=== PATIENT | female | born 1970 | race Hispanic/Latino ===

== ENCOUNTER 2024-10-26 12:36 | Emergency (ER) | payer MEDICARE ==
[~2024-10-26] VITALS: Ht 154.9 cm; Wt 113.4 kg
--- NOTE | 2024-10-26 12:47 | ERN ---
ED Note History of Present Illness Stated Complaint: LEFT BREAST INFECTION Chief Complaint: Breast Problem Time Seen by MD: 12:40 Dictation: PATIENT IS A 54-YEAR-OLD FEMALE HERE WITH A BREAST INFECTION AFTER HAVING A BREAST REDUCTION AT [facility] IN LATE SEPTEMBER. SHE SAID NO FEVER NO CHILLS. SHE SAW HER DOCTOR LAST WEEK WHO PERFORMED A CULTURE ON SOME DRAINAGE FROM THE BREAST LEFT AND PUT HER ON CLINDAMYCIN 300 MG Q.I.D.. SHE SPOKE WITH THE SURGEON FROM [facility], DR. CUENCA WHO TOLD HER THAT SHE DID NOT NEED TO RETURNED TO [facility] OR HIM BECAUSE THE SURGERY WAS COMPLETED. Allergies: Coded Allergies: meloxicam (Unverified Allergy, Unknown, 10/26/24) Past Medical History History: Not Applicable RN Note Reviewed/Agreed w/PFSH: Yes Review of System Dictation NORMAL ROS CONSTITUTIONAL: NEGATIVE EXCEPT FOR HPI HEAD/FACE: NEGATIVE EXCEPT FOR HPI EENT: NEGATIVE EXCEPT FOR HPI RESPIRATORY: NEGATIVE EXCEPT FOR HPI LEFT BREAST PAIN WITH DISCHARGED FROM SURGICAL SITE GASTROINTESTINAL/ABDOMINAL: NEGATIVE EXCEPT FOR HPI GENITOURINARY: NEGATIVE EXCEPT FOR HPI MUSCULOSKELETAL: NEGATIVE EXCEPT FOR HPI INTEGUMENTARY: NEGATIVE EXCEPT FOR HPI NEUROLOGICAL/PSYCH: NEGATIVE EXCEPT FOR HPI HEMATOLOGIC/LYMPHATIC: NEGATIVE EXCEPT FOR HPI ALL SYSTEMS NEGATIVE, EXCEPT NOTED ABOVE. 13 POINT REVIEW OF SYSTEMS ASSESSED AND ALL NEGATIVE EXCEPT FOR ABOVE. Initial Vital Sign VS Vital Signs Date Time Temp Pulse Resp B/P (MAP) Pulse Ox O2 Delivery O2 Flow Rate FiO2 10/26/24 12:43 97.9 71 16 152/65 96 0 Physical Exam Dictation VITAL SIGNS REVIEWED ANJELICA NURSE STUDENT WITH THE EXAM GENERAL APPEARANCE: ALERT, ORIENTED X 3, NO ACUTE DISTRESS, WELL DEVELOPED, NOURISHED. HEAD AND FACE: NON-TRAUMATIC. EYES: PERRL, PINK CONJUNCTIVAS, EYELID NO TRAUMA, ANTERIOR CHAMBER WITH ARCUS SENILIS. EARS: PINNAS INTACT AND NO SIGNS OF TRAUMA OR ERYTHEMA EAR CANALS CLEAR AND NO DISCHARGE TM NO ERYTHEMA NOSE: NO DISCHARGE, NO BLEEDING. OROPHARYNX: MOUTH NORMAL, TONGUE PINK, PHARYNX CLEAR,NO ERYTHEMA, TONSILS NO EXUDATES, NO ABSCESSES NOTED, MUCOUS MEMBRANE MOIST NECK: SUPPLE, NON-TENDER, NO THYROMEGALY, NO MASSES, NO JVD, NO BRUITS BREAST PATIENT HAS INCISION LINE THAT HER APPROXIMATED FROM BREAST REDUCTION ON 10/03. NIPPLE REATTACHMENT INCISION TO RIGHT IS DARK. PATIENT HAS PACKING TO THE LEFT NIPPLE INCISION LINE. SHE STATES THIS WAS PLACED BY HER DOCTOR WHEN HE EXAMINED HER TWO DAYS AGO AND STARTED HER ON CLINDAMYCIN. CHEST:NO TENDERNESS, NO CREPITUS, NO PARADOXICAL MOVEMENT, NO RETRACTIONS LUNGS:CLEAR, WELL-VENTILATED, SYMMETRIC, NO RALES, NO WHEEZING, NO RHONCHI, NO STRIDOR, GOOD BREATH SOUNDS BILATERALLY HEART: REGULAR RATE, REGULAR RHYTHM, NO MURMUR, NO GALLOPS VASCULAR: NO PERIPHERAL EDEMA, ABDOMEN: SOFT, POSITIVE BOWEL SOUNDS, NONDISTENDED, NO GUARDING, NONTENDER, NO REBOUND, NO MASSES NO HEPATOMEGALY, NO SPLENOMEGALY, NO GALVAN'S SIGN, NO HERNIAS. RECTAL: DEFERRED GENITAL: DEFERRED NEUROLOGICAL: NORMAL SPEECH, MOTOR FUNCTION INTACT, SENSORY FUNCTION INTACT MUSCULOSKELETAL: NECK NONTENDER, FULL RANGE OF MOTION, BACK NONTENDER, FULL RANGE OF MOTION, EXTREMITIES: NONTENDER, FULL RANGE OF MOTION SKIN: COLOR PINK, DRY, NO TURGOR, NO RASH, NO LACERATIONS, NO ABRASIONS, NO CONTUSIONS. LYMPHATIC: DEFERRED Results (Laboratory/Radiology) Laboratory/Radiology Laboratory Tests Test 10/26/24 13:02 White Blood Count 7.9 K/uL (4.8-10.8) Red Blood Count 4.57 MIL/uL (4.00-5.50) Hemoglobin 13.5 g/dL (12.0-16.0) Hematocrit 41.2 % (36-48) Mean Corpuscular Volume 90.2 fL (79-99) Mean Corpuscular Hemoglobin 29.5 pg (27.0-33.0) Mean Corpuscular Hemoglobin Concent 32.8 g/dL (32.0-36.0) Red Cell Distribution Width 13.2 % (11.0-15.5) Platelet Count 318 K/uL (130-400) Mean Platelet Volume 9.0 fL (7.5-10.5) Immature Granulocyte % (Auto) 0.3 % (0-1) Neutrophils (%) (Auto) 62.3 % (40.0-77.0) Lymphocytes (%) (Auto) 25.0 % (21.0-51.0) Monocytes (%) (Auto) 5.9 % (3.0-13.0) Eosinophils (%) (Auto) 6.1 % (0.0-8.0) Basophils (%) (Auto) 0.4 % (0.0-5.0) Neutrophils # (Auto) 5.0 K/uL (1.8-7.7) Lymphocytes # (Auto) 2.0 K/uL (1.0-4.8) Monocytes # (Auto) 0.5 K/uL (0.1-1.0) Eosinophils # (Auto) 0.48 K/uL (0.00-0.70) Basophils # (Auto) 0.03 K/uL (0.00-0.20) Absolute Immature Granulocyte (auto 0.02 K/uL (0-1) Nucleated Red Blood Cells 0.0 % (0.0-0.19) Sodium Level 141 mmol/L (136-145) Potassium Level 4.1 mmol/L (3.5-5.1) Chloride Level 105 mmol/L (101-111) Carbon Dioxide Level 31 mmol/L (21-32) Blood Urea Nitrogen 18 mg/dL (7-18) Creatinine 0.7 mg/dL (0.5-1.0) Glomerular Filtration Rate Calc 103 mL/min (>90) Random Glucose 96 mg/dL (70-105) Lactic Acid Level 1.5 mmol/L (0.8-2.5) Total Calcium 9.2 mg/dL (8.5-10.1) Labs Reviewed?: Yes ED Course ED Course Orders Procedure Category Date Status Time Blood Cult HAYDER 10/26/24 In Process 12:44 Lactic Acid LAB 10/26/24 Complete 12:44 Cbc With Differential LAB 10/26/24 Complete 12:44 Basic Metabolic Panel LAB 10/26/24 Complete 12:44 0.9%Nacl 1000ml (Ns PHA 10/26/24 Complete 1000ml) 13:30 *Nursing CPOE 10/26/24 Transmitted Communication: 13:50 Current Medications Medications (Trade) Dose Ordered Sig/Mykel Route PRN Reason Start Time Stop Time Status Last Admin Dose Admin Sodium Chloride 1,000 ml @ 0 mls/hr ONCE ONCE IV 10/26/24 13:30 10/26/24 13:31 DC 10/26/24 14:02 Vital Signs Date Time Temp Pulse Resp B/P (MAP) Pulse Ox O2 Delivery O2 Flow Rate FiO2 10/26/24 12:43 97.9 71 16 152/65 96 0 1445/PATIENT HEMODYNAMICALLY STABLE A FEVER UP. DISCHARGED HOME WITH NORMAL LABS TOLD TO CONTINUE CLINDAMYCIN AFTER BREAST INCISION LINES WERE CLEANED WITH NORMAL SALINE BY THE NURSE AND DRY DRESSING WAS REPLACED. SHE WAS TOLD TO CONTINUE CLINDAMYCIN AND TO FOLLOW UP WITH HER SURGEON AT [facility] IN THE NEXT 1-2 DAYS. Medical Decision Making MDM MEDICAL DECISION-MAKING BASED ON BASIC LABS TO RULE OUT INFECTION SECONDARY TO SURGERY. LABS ARE COMPLETELY UNREMARKABLE DRESSING NOTED WITH PACKING TO LEFT BREAST PACKING WAS LEFT IN PLACE INCISION LINES WERE CLEANED WITH NORMAL SALINE AND REFRESH DRESSING WAS APPLIED PATIENT TOLD TO CONTINUE CLINDAMYCIN FROM HER PRIMARY CARE DOCTOR IN TO SEE HER SURGEON AT [facility] IN THE NEXT 1-2 DAYS. DX & DISP Disposition: Discharge Departure Impression: Primary Impression: Status post bilateral breast reduction Condition: Stable Additional Instructions: FOLLOW-UP WITH PRIMARY CARE PROVIDER IN 1 TO 2 DAYS. TAKE MEDICATIONS DIRECTED HERE IN THE EMERGENCY ROOM. OKAY TO CONTINUE HOME MEDICATIONS UNLESS OTHERWISE DISCUSSED DURING YOUR VISIT IN THE EMERGENCY ROOM TODAY. RETURN TO YOUR NEAREST EMERGENCY ROOM IF SYMPTOMS WORSEN OR IF THERE IS NO IMPROVEMENT. CALL 911 IF YOU NEED IMMEDIATE ASSISTANCE. TAKE TYLENOL OR MOTRIN [id number] NTER NEEDED AND IF NO CONTRAINDICATIONS ARE PRESENT. INCREASE ORAL HYDRATION. A WOUND CULTURE OR URINE CULTURE WAS ORDERED HERE IN THE EMERGENCY ROOM DEPARTMENT PLEASE FOLLOW-UP WITH PRIMARY CARE PROVIDER AND ADVISE THEM TO GET REPEAT PORTS FROM OUR FACILITY. IF YOU HAD ANY NITA WRAP/SPLINTS THAT WERE APPLIED HERE, PLEASE DO NOT REMOVE THEM UNTIL YOU SEE YOUR PRIMARY CARE OR S PECIALTY. CONTINUE ALL MEDICATIONS AND TREATMENTS FROM YOUR PRIMARY CARE DOCTOR. STRONGLY SUGGEST FOLLOWING UP WITH THE YOUR SURGEON IN THE NEXT 1-2 DAYS AT [facility]. Time of Disposition: 14:47 I have reviewed the case, and I agree with, Diagnosis and Plan GARRICK HAINES NP Oct 26, 2024 12:47
[2024-10-26 13:14] LABS: IMMATURE GRANULOCYTE ABSOLUTE 0.02 K/uL (0-1); NUCLEATED RED BLOOD CELLS 0.0 % (0.0-0.19); PLATELET COUNT (AUTO) 318 K/uL (130-400); RED BLOOD CELL COUNT(AUTO) 4.57 MIL/uL (4.00-5.50); RED CELL DISTRIBUTION WIDTH 13.2 % (11.0-15.5); WHITE BLOOD COUNT (AUTO) 7.9 K/uL (4.8-10.8)
[2024-10-26 13:24] LABS: CREATININE 0.7 mg/dL (0.5-1.0); GLOMERULAR FILTR. RATE CALC 103.0 mL/min (>90); GLUCOSE,RANDOM 96.0 mg/dL (70-105); SODIUM SERUM 141.0 mmol/L (136-145); UREA NITROGEN, BLOOD 18.0 mg/dL (7-18)
[2024-10-26] MEDS: 0.9%NACL 1000ML 1,000 ML IV ONE (14:02)
[2024-10-26 15:00] VITALS: BP 147/79; PULSE 77; RESP 16; TEMP 98; O2SAT 96
--- NOTE | 2024-10-26 15:00 | NUR ---
performed wound care as per orders. Patient tolerated wound care well. No complications.
== END 2024-10-26 15:58 | disposition home or self-care (01) ==
LOC: EDH 12:36
DX: N61.0 Mastitis without abscess (principal); Z42.1 Encounter for breast reconstruction following mastectomy; Z88.8 Allergy status to other drugs, medicaments and biological substances
CPT/HCPCS: 99283; 96360; 80048; 85025; 87040 ×2; 83605; 36415; J7030